=== PATIENT | male | born 1980 | race Hispanic/Latino ===

== ENCOUNTER 2016-10-29 19:45 | Emergency (ER) | payer SELFPAY ==
[~2016-10-29] VITALS: Ht 172.7 cm; Wt 75.0 kg
[~2016-10-29 19:45] MED LIST: AMOXICILLIN250 M1 OR; NAPROSYN500 MG OR; NO MEDS; PRILOSEC20 MG PO; TYLENOL & COD12.5 ML OR
[2016-10-29 19:50] VITALS: BP 135/90
[2016-10-29] MEDS ORDERED: KEFLEX500 MG PO (20:15)
[2016-10-29] MEDS ORDERED: PERCOCET 5/325M1 TAB PO (20:16)
== END 2016-10-29 20:30 | disposition home or self-care (01) | DRG 603 ==
LOC: ED 19:45
DX: L02.31 Cutaneous abscess of buttock (principal)

== ENCOUNTER 2016-11-30 19:34 | Emergency (ER) | payer SELFPAY ==
[~2016-11-30] VITALS: Ht 172.7 cm; Wt 77.8 kg
[~2016-11-30 19:34] MED LIST changes: +KEFLEX500 MG PO; +PERCOCET 5/325M1 TAB PO
[2016-11-30 20:30] VITALS: BP 133/86
[2016-11-30] MEDS ORDERED: KEFLEX500 MG PO (20:48)
[2016-11-30] MEDS ORDERED: IBUPROFEN600 MG PO (20:48)
== END 2016-11-30 20:58 | disposition home or self-care (01) | DRG 607 ==
LOC: ED 19:34
DX: R22.2 Localized swelling, mass and lump, trunk (principal)